=== PATIENT | male | born 1970 | race Caucasian/White ===

== ENCOUNTER 2017-12-29 15:37 | Inpatient (IN) | payer MEDICAID, MEDICARE ==
[~2017-12-29] VITALS: Ht 177.8 cm; Wt 85.0 kg
[~2017-12-29 15:37] MED LIST: ARIP20TA PO; ARIP400S IM; BACI30OI10 TP; DIPH50 PO; DSS100 PO; LISI-661 PO; NYSTPW TP; OMEP10 PO
[2017-12-29 18:42] LABS: BASOPHILS % (AUTO) 0.9 % (0.0-2.0); EOSINOPHILS % (AUTO) 2.4 % (1.0-6.0); HEMATOCRIT 40.7 % (41-53); HEMOGLOBIN 14.4 g/dL (13.5-17.5); LYMPHOCYTES # (AUTO) 2.8 K/uL (1.0-4.8); LYMPHOCYTES % (AUTO) 29.2 % (22.0-44.0); MEAN CORPUSCULAR HEMOGLOBIN 32.9 pg (26.0-34.0); MEAN CORPUSCULAR HGB CONC 35.3 G/dL (31.0-37.0); MEAN CORPUSCULAR VOLUME 93 fL (80-100); MONOCYTES # (AUTO) 0.8 K/uL (0.1-1.0); MONOCYTES % (AUTO) 8.4 % (2.0-9.0); NEUTROPHILS # (AUTO) 5.7 K/uL (1.8-7.7); NEUTROPHILS % (AUTO) 59.1 % (40.0-70.0); PLATELET COUNT (AUTO) 296 K/uL (150-450); RED BLOOD CELL COUNT(AUTO) 4.36 MIL/uL (4.50-5.90); RED CELL DISTRIBUTION WIDTH 13.7 % (11.5-14.5)
[2017-12-29 18:58] LABS: ANION GAP 8 mmol/L (8-16); CARBON DIOXIDE 27 mmol/L (22-29); CHLORIDE 104 mmol/L (98-107); CREATININE 0.92 mg/dL (0.60-1.30); GLOMERULAR FILTR. RATE CALC > 60 mL/min (>60); GLUCOSE,RANDOM 98 mg/dL (70-110); SODIUM SERUM 139 mmol/L (136-145); UREA NITROGEN, BLOOD 24 mg/dL (7-18)
[2017-12-29 19:06] LABS: ALANINE AMINOTRANSFERASE 21 U/L (12-78); ALBUMIN 3.3 g/dL (3.4-5.0); ALKALINE PHOSPHATASE 51 U/L (46-116); ASPARTATE AMINOTRANSFERASE 18 U/L (15-37); BILIRUBIN,TOTAL 0.3 mg/dL (0.1-1.0); TOTAL PROTEIN, SERUM 7.6 g/dL (6.4-8.2)
[2017-12-29] MEDS ORDERED: OLANZapine 10 MG RAPDIS TABLET PO ONE (19:45)
[2017-12-29] MEDS ORDERED: OMEP20 PO (19:48)
[2017-12-29] MEDS ORDERED: OLANZapine 5 MG RAPDIS TABLET PO PRN (20:00)
[2017-12-29] MEDS ORDERED: ZOLPIDEM TARTRATE 10 MG TABLET PO PRN (20:00)
[2017-12-30 03:32] LABS: CHOL/HDL RATIO 2.5 (4.2-7.3); CHOLESTEROL 154 mg/dL (131-200); HDL CHOLESTEROL 61 mg/dL (40-60); LDL CHOL (CALC.) 70 mg/dL (0-130); TRIGLYCERIDES 113 mg/dL (15-150)
[2017-12-30 04:31] LABS: AMPHET/METH SCREEN,URINE POSITIVE (NEGATIVE); BARBITURATE SCREEN, URINE NEGATIVE (NEGATIVE); BENZODIAZEPINES SCREEN,URINE POSITIVE (NEGATIVE); CANNABINOID SCREEN,URINE POSITIVE (NEGATIVE); COCAINE SCREEN,URINE NEGATIVE (NEGATIVE); METHADONE SCREEN, URINE NEGATIVE (NEGATIVE); OPIATE SCREEN,URINE NEGATIVE (NEGATIVE)
[2017-12-30 04:32] LABS: PHENCYCLIDINE SCREEN,URINE NEGATIVE (NEGATIVE)
[2017-12-30 04:33] LABS: APPEARANCE,URINE CLEAR (CLEAR); GLUCOSE, URINE (UA) NEGATIVE (NEGATIVE); KETONES,URINE TRACE mg/dL (NEGATIVE); LEUKOCYTE ESTERASE ,URINE NEGATIVE (NEGATIVE); NITRATE,URINE NEGATIVE (NEGATIVE); OCCULT BLOOD,URINE NEGATIVE (NEGATIVE); PH,URINE 5.5 (5.0-8.0); PROTEIN,URINE TRACE (NEGATIVE); UROBILINOGEN,URINE 0.2 mg/dL (<=1.0)
[2017-12-30 04:34] LABS: BILIRUBIN,URINE PRELIM. POSITIVE (NEGATIVE)
[2017-12-30 14:25] VITALS: BP 136/82
[2017-12-30] MEDS ORDERED: LOPERAMIDE HCL 2 MG CAPSULE PO PRN (15:15)
[2017-12-30] MEDS ORDERED: GuaiFENesin/D-METHORPHAN [SUGAR-FREE] 200-20MG/10 ML SYRUP UDCUP PO PRN (15:15)
[2017-12-30] MEDS ORDERED: IBUPROFEN 400 MG TABLET PO PRN (15:15)
[2017-12-30] MEDS ORDERED: ONDANSETRON HCL 4 MG TABLET PO PRN (15:15)
[2017-12-30] MEDS ORDERED: DOCUSATE SODIUM 100 MG CAPSULE PO PRN (15:15)
[2017-12-30] MEDS ORDERED: ACETAMINOPHEN 325 MG TABLET PO PRN (15:15)
[2017-12-30] MEDS ORDERED: MAGNESIUM HYDROXIDE SUSPENSION 30 ML UDCUP PO PRN (15:15)
[2017-12-30] MEDS ORDERED: NICOTINE 14 MG/24 HOUR PATCH TD PRN (15:15)
[2017-12-30] MEDS ORDERED: PETROLATUM,WHITE 71 GM JELLY TP PRN (15:15)
[2017-12-30] MEDS ORDERED: CloNIDine HCL 0.1 MG TABLET PO PRN (15:15)
[2017-12-30] MEDS ORDERED: ALBUTEROL SULFATE HFA 90 MCG/PUFF 8 GM INHALER IH PRN (15:15)
[2017-12-30] MEDS ORDERED: MAG HYDROX/AL HYDROX/SIMETH ES 30 ML SUSPENSION UDCUP PO PRN (15:15)
[2017-12-30] MEDS: OLANZapine 5 MG TABLET PO SCH (16:51)
[2017-12-30] MEDS: LORazepam 2 MG TABLET PO PRN (17:21)
[2017-12-30 18:55] VITALS: BP 98/66
[2017-12-31 06:28] LABS: BASOPHILS % (AUTO) 0.4 % (0.0-2.0); EOSINOPHILS % (AUTO) 2.3 % (1.0-6.0); HEMATOCRIT 42.2 % (41-53); HEMOGLOBIN 14.5 g/dL (13.5-17.5); LYMPHOCYTES # (AUTO) 2.7 K/uL (1.0-4.8); LYMPHOCYTES % (AUTO) 25.3 % (22.0-44.0); MEAN CORPUSCULAR HEMOGLOBIN 32.5 pg (26.0-34.0); MEAN CORPUSCULAR HGB CONC 34.4 G/dL (31.0-37.0); MEAN CORPUSCULAR VOLUME 94 fL (80-100); MONOCYTES # (AUTO) 0.9 K/uL (0.1-1.0); MONOCYTES % (AUTO) 8.8 % (2.0-9.0); NEUTROPHILS # (AUTO) 6.6 K/uL (1.8-7.7); NEUTROPHILS % (AUTO) 63.2 % (40.0-70.0); PLATELET COUNT (AUTO) 289 K/uL (150-450); RED BLOOD CELL COUNT(AUTO) 4.47 MIL/uL (4.50-5.90); RED CELL DISTRIBUTION WIDTH 13.9 % (11.5-14.5)
[2017-12-31 06:55] LABS: HEMOGLOBIN A1C 5.4 % (4.5-6.2)
[2017-12-31 07:15] LABS: THYROID STIMULATING HORMONE 2.31 uIU/mL (0.36-3.74)
[2017-12-31] MEDS: OLANZapine 5 MG TABLET PO SCH ×2 (08:12→16:23)
[2017-12-31] MEDS: FLUoxetine HCL 20 MG CAPSULE PO SCH (08:12)
[2017-12-31 10:39] VITALS: BP 146/92
[2017-12-31] MEDS: LORazepam 2 MG TABLET PO PRN (15:49)
[2017-12-31 16:16] VITALS: BP 139/75
[2018-01-01] MEDS: OMEPRAZOLE 20 MG CAPSULE PO SCH (05:58)
[2018-01-01] MEDS: FLUoxetine HCL 20 MG CAPSULE PO SCH (08:07)
[2018-01-01] MEDS: OLANZapine 5 MG TABLET PO SCH ×2 (08:07→15:57)
[2018-01-01] MEDS: LISINOPRIL 10 MG TABLET PO SCH (08:07)
[2018-01-01 09:43] VITALS: BP 133/92
[2018-01-01] MEDS: LORazepam 2 MG TABLET PO PRN (15:57)
[2018-01-01 20:11] VITALS: BP 132/78
[2018-01-02] MEDS: OMEPRAZOLE 20 MG CAPSULE PO SCH (06:27)
[2018-01-02] MEDS: OLANZapine 5 MG TABLET PO SCH ×2 (09:13→16:32)
[2018-01-02] MEDS: LISINOPRIL 10 MG TABLET PO SCH (09:13)
[2018-01-02] MEDS: FLUoxetine HCL 20 MG CAPSULE PO SCH (09:13)
[2018-01-02 11:27] VITALS: BP 148/87
[2018-01-02 19:54] VITALS: BP 128/75
[2018-01-03] MEDS: OMEPRAZOLE 20 MG CAPSULE PO SCH (06:37)
[2018-01-03] MEDS: OLANZapine 5 MG TABLET PO SCH (08:23)
[2018-01-03] MEDS: LISINOPRIL 10 MG TABLET PO SCH (08:23)
[2018-01-03] MEDS: FLUoxetine HCL 20 MG CAPSULE PO SCH (08:23)
[2018-01-03 08:42] VITALS: BP 132/67
[2018-01-03] MEDS ORDERED: FLUO-191 PO (09:16)
[2018-01-03] MEDS ORDERED: OLAN5TAB2 PO (09:16)
== END 2018-01-03 16:15 | disposition home or self-care (01) | DRG 885 ==
LOC: EMS 15:38 → 3EX 12-30 14:13
PROVIDERS: ADMIT Psychiatry & Neurology Psychiatry; ATTEND Psychiatry & Neurology Psychiatry
DX: F25.0 Schizoaffective disorder, bipolar type (principal); E44.0 Moderate protein-calorie malnutrition; Z68.26 Body mass index [BMI] 26.0-26.9, adult; Z88.8 Allergy status to other drugs, medicaments and biological substances; E78.5 Hyperlipidemia, unspecified; F17.210 Nicotine dependence, cigarettes, uncomplicated; F19.90 Other psychoactive substance use, unspecified, uncomplicated; F41.9 Anxiety disorder, unspecified; I10 Essential (primary) hypertension; J44.9 Chronic obstructive pulmonary disease, unspecified; K21.9 Gastro-esophageal reflux disease without esophagitis; K59.00 Constipation, unspecified; Z59.0 Homelessness; Z78.1 Physical restraint status; Z79.899 Other long term (current) drug therapy; Z91.19 Patient's noncompliance with other medical treatment and regimen; Z89.431 Acquired absence of right foot
CPT/HCPCS: 83036; 84443; 99285; 99406; G0480

== ENCOUNTER 2025-03-15 19:38 | Inpatient (IN) | payer MEDICARE, OTHER ==
[~2025-03-15] VITALS: Ht 182.9 cm; Wt 100.0 kg
[~2025-03-15 19:38] MED LIST changes: -NICOTINE 14 MG/24 HOUR PATCH TD ONE
[2025-03-16 07:46] LABS: CALCIUM, TOTAL 9.0 mg/dL (8.8-10.5); CREATININE 0.44 mg/dL (0.60-1.30); GLOMERULAR FILTR. RATE CALC > 60 mL/min (>60); GLUCOSE,RANDOM 96 mg/dL (70-110); SODIUM SERUM 135 mmol/L (136-145); UREA NITROGEN, BLOOD 10 mg/dL (7-18)
[2025-03-16 07:48] LABS: PLATELET COUNT (AUTO) 395 K/uL (150-450); RED BLOOD CELL COUNT(AUTO) 4.39 MIL/uL (4.50-5.90); RED CELL DISTRIBUTION WIDTH 14.1 % (11.5-14.5); WHITE BLOOD COUNT (AUTO) 9.4 K/uL (4.5-11.0)
[2025-03-16 11:03] LABS: APPEARANCE,URINE TURBID (CLEAR); GLUCOSE, URINE (UA) NEGATIVE (NEGATIVE); LEUKOCYTE ESTERASE ,URINE LARGE (NEGATIVE); NITRATE,URINE POSITIVE (NEGATIVE); OCCULT BLOOD,URINE SMALL (NEGATIVE); SPECIFIC GRAVITIY, URINE 1.015 (1.003-1.030)
[2025-03-16 11:20] LABS: SQUAMOUS EPITHELIAL CELL,UR Few /LPF (None Seen)
[2025-03-16] MEDS ORDERED: IPRATROPIUM BROMIDE 0.5 MG/2.5 ML NEB SOLUTION NEB PRN (12:30)
[2025-03-16] MEDS ORDERED: ZOLPIDEM TARTRATE 5 MG TABLET PO PRN (12:30)
[2025-03-16] MEDS ORDERED: ALBUTEROL SULFATE 2.5 MG/0.5 ML NEB SOLUTION NEB PRN (12:30)
[2025-03-16] MEDS ORDERED: MORPHINE SULFATE 4 MG/ML SYRINGE IVP PRN (12:30)
[2025-03-16] MEDS ORDERED: ONDANSETRON HCL 4 MG/2 ML VIAL IVP PRN (12:30)
[2025-03-16] MEDS ORDERED: MAGNESIUM HYDROXIDE SUSPENSION 30 ML UDCUP PO PRN (12:30)
[2025-03-16] MEDS ORDERED: HYDROCODONE/ACETAMINOPHEN 5-325 MG TABLET PO PRN (12:30)
[2025-03-16] MEDS ORDERED: BISACODYL 10 MG RECTAL RECTAL SUPPOSITORY PR PRN (12:30)
[2025-03-16] MEDS: CefTRIAXone 1 GM/DEXTROSE 50 ML IV ONE (13:16)
[2025-03-16 14:52] VITALS: BP 130/60; PULSE 69; RESP 17; TEMP 98.4; O2SAT 97
[2025-03-16] MEDS: HEPARIN SODIUM,PORCINE 5,000 UNITS/ML VIAL SQ SCH (16:03)
[2025-03-16 16:19] VITALS: BP 111/50; PULSE 76; RESP 18; TEMP 97.5; O2SAT 99
[2025-03-16 19:55] VITALS: BP 124/60; PULSE 77; RESP 18; TEMP 97.5; O2SAT 93
[2025-03-16] MEDS: DIVALPROEX SODIUM 500 MG DR TABLET PO SCH (20:19)
[2025-03-16] MEDS: MELATONIN 3 MG TABLET PO SCH (20:19)
[2025-03-17 04:06] VITALS: BP 142/81; PULSE 81; RESP 18; TEMP 98.1; O2SAT 93
[2025-03-17 08:00] VITALS: BP 138/65; PULSE 63; RESP 20; TEMP 98.1; O2SAT 97
[2025-03-17] MEDS: PANTOPRAZOLE SODIUM 40 MG DR TABLET PO SCH (09:18)
[2025-03-17] MEDS ORDERED: SODIUM CHLORIDE 0.9% 500 ML IV ONE (13:52)
[2025-03-17] MEDS: CefTRIAXone 1 GM/DEXTROSE 50 ML IV SCH (13:57)
[2025-03-17 16:00] VITALS: BP 149/76; PULSE 70; RESP 20; TEMP 97.7; O2SAT 98
[2025-03-17] MEDS: NICOTINE 21 MG/24 HOUR PATCH TD SCH (17:51)
[2025-03-17] MEDS: ACETAMINOPHEN 325 MG TABLET PO PRN (17:51)
[2025-03-17 20:00] VITALS: BP 101/49; PULSE 61; RESP 16; TEMP 97.9; O2SAT 96
[2025-03-17] MEDS: MELATONIN 5 MG TABLET PO SCH (20:28)
[2025-03-17] MEDS: ETHYL ALCOHOL 62% ANTISEPTIC NASAL SANITIZER 0.6 ML AMPUL NASAL SCH (20:28)
[2025-03-18 04:00] VITALS: BP 130/71; PULSE 56; RESP 18; TEMP 97; O2SAT 97
[2025-03-18 09:01] VITALS: BP 131/73; PULSE 51; RESP 18; TEMP 97.3; O2SAT 100
[2025-03-18 16:32] VITALS: BP 117/69; PULSE 65; RESP 18; TEMP 97.3; O2SAT 95
[2025-03-18 20:01] VITALS: BP 117/60; PULSE 66; RESP 18; TEMP 97.9; O2SAT 96
[2025-03-19 03:16] VITALS: BP 102/64; PULSE 56; RESP 18; TEMP 98.2; O2SAT 97
[2025-03-19] MEDS: PANTOPRAZOLE SODIUM 40 MG DR TABLET PO SCH (08:45)
[2025-03-19] MEDS: NICOTINE 21 MG/24 HOUR PATCH TD SCH (08:46)
[2025-03-19 08:48] VITALS: BP 121/71; PULSE 63; RESP 18; TEMP 98.2; O2SAT 96
[2025-03-19 14:58] VITALS: BP 120/69; PULSE 64; RESP 17; TEMP 98.1; O2SAT 97
[2025-03-19] MEDS ORDERED: HEPA50009 SQ (15:25)
[2025-03-19] MEDS ORDERED: NICO-803 TD (15:28)
[2025-03-19] MEDS ORDERED: ALBU2.5V39 NEB (15:29)
[2025-03-19] MEDS ORDERED: MAGN-169 PO (15:30)
== END 2025-03-19 16:15 | DRG 690 ==
LOC: EMS 22:47 → EDH 03-16 12:31 → 6S 03-16 13:37
PROVIDERS: ADMIT Hospitalist; ATTEND Hospitalist
DX: N39.0 Urinary tract infection, site not specified (principal); R41.0 Disorientation, unspecified; I10 Essential (primary) hypertension; R56.9 Unspecified convulsions; F25.0 Schizoaffective disorder, bipolar type; F15.10 Other stimulant abuse, uncomplicated; F12.10 Cannabis abuse, uncomplicated; B96.20 Unspecified Escherichia coli [E. coli] as the cause of diseases classified elsewhere; F17.210 Nicotine dependence, cigarettes, uncomplicated; Z89.511 Acquired absence of right leg below knee; Z79.899 Other long term (current) drug therapy; Z89.432 Acquired absence of left foot; Z71.6 Tobacco abuse counseling
CPT/HCPCS: 71045; 80048; 81001; 85025; 87077; 87081; 87086; 87186; 93005; 99284; 99285; J0696; J1644; J7040; 36415-L1; 36415-TC

== ENCOUNTER → 2025-03-15 | Emergency (ER) | payer MEDICARE, OTHER ==
[~2025-03-15] VITALS: Ht 177.8 cm; Wt 100.0 kg
[~2025-03-15] MED LIST changes: +ACET-2247 PO; +AMOX1TAB15 PO; +ARIP15TA27 PO; -ARIP20TA PO; -ARIP400S IM; -BACI30OI10 TP; +BISA10SU11 PR; +CLON-595 PO; -DIPH50 PO; +DIVA-112 PO; -DSS100 PO; +LEVE-71 PO; -LISI-661 PO; +LISI-893 PO; +MELA3TAB89 PO; +NICOTINE 14 MG/24 HOUR PATCH TD ONE; -NYSTPW TP; -OMEP10 PO; +PANT-31 PO
[2025-03-15 13:19] VITALS: TEMP 98.6
[2025-03-15 14:54] LABS: COVID AG,FIA SOURCE NASAL SWAB
[2025-03-15 15:49] LABS: SARS-COV2 (COVID) ANTIGEN,FIA Negative (Negative)
[2025-03-15 18:08] VITALS: BP 143/72; PULSE 74; RESP 18; O2SAT 99
== END | disposition home or self-care (01) ==
LOC: EMS 12:51
DX: F25.9 Schizoaffective disorder, unspecified (principal); F32.A Depression, unspecified; I10 Essential (primary) hypertension; F17.210 Nicotine dependence, cigarettes, uncomplicated; G40.909 Epilepsy, unspecified, not intractable, without status epilepticus; Z79.899 Other long term (current) drug therapy; Z20.822 Contact with and (suspected) exposure to COVID-19
CPT/HCPCS: 99284; Z7502; Z7610